=== PATIENT | female | born 1985 | race Caucasian/White ===

== ENCOUNTER → 2017-02-22 17:08 | Emergency (ER) | payer OTHER ==
[~2017-02-22 17:08] MED LIST: Phenazopyridine TAB* 100 MG PO ONE; Sulfamethox/Trimethoprim DS 800/160* TAB PO ONE
[2017-02-22 17:18] VITALS: BP 126/84
--- NOTE | 2017-02-22 18:15 | ED ---
GI/ HPI - HPI Summary HPI Summary: Pt here w/ urinary sx. Last week, noticed spotting w/ urination and dysuria - felt like pressure more than burning. This dissipated after a few days w/ water and cranberry juice. Then last night, she developed return of pain but different this time - LLQ and lower central pelvic region - has urinary frequency. Tried ibuprofen, heat pack, cranberry juice w/o difficulty. Denies flank pain, fever, chills, N/V/D and BM's are normal. She is sexually active and has had tubal ligation - denies vaginal irritation, d/c, pain. Periods are normal except for having 2 periods this past month which is not normal for her. Uses tampons but does not believe she could be at risk for retaining a tampon. No h/o UTI or kidney stone. NOTE: pt has asthma which is poorly controlled today. She ran out of albuterol inhaler - no refills and PCP requesting appoinment which they cannot schedule her for anytime soon. She is currently wheezing but speaking in full sentences w / a good pulse ox. - History of Current Complaint Chief Complaint: EDUrogenitalProblems Time Seen by Provider: 02/22/17 17:38 Stated Complaint: POSS UTI Hx Obtained From: Patient Pain Intensity: 0 - Allergy/Home Medications Allergies/Adverse Reactions: Allergies Allergy/AdvReac Type Severity Reaction Status Date / Time [place] Allergy Severe Hives/Diff. Verified 10/03/15 11:42 Breathing/I tching Iodinated Diagnostic Agents Allergy Severe Hives/Diff. Verified 10/03/15 11:42 Breathing/I tching Ofloxacin [From Floxin] Allergy Severe Hives/Diff. Verified 10/03/15 11:42 Breathing/I tching Adhesive Tape [Paper Tape] Allergy Intermediate Rash And Verified 10/03/15 11:42 Itching Quetiapine [From Seroquel] Allergy Intermediate Hives Verified 10/03/15 11:42 GRAPES Allergy Severe Hives/Diff. Uncoded 10/03/15 11:42 Breathing/I tching PMH/Surg Hx/FS Hx/Imm Hx Previously Healthy: Yes Endocrine/Hematology History: Denies: Hx Anticoagulant Therapy, Hx Blood Disorders Cardiovascular History: Denies: Hx Deep Vein Thrombosis Respiratory History: Reports: Hx Asthma Sensory History: Reports: Hx Contacts or Glasses Opthamlomology History: Reports: Hx Contacts or Glasses - Surgical History Surgery Procedure, Year, and Place: Tubal. Left ankle - subtalar fusion Infectious Disease History: No Infectious Disease History: Denies: Hx of Known/Suspected MRSA, Traveled Outside the [place] in Last 30 Days - Family History Known Family History: Positive: Cardiac Disease, Diabetes, Other - cancer - Social History Alcohol Use: Occasionally Substance Use Type: Reports: Marijuana Substance Use Comment - Amount & Last Used: occasional Smoking Status (MU): Never Smoked Tobacco Type: Smokeless Tobacco Amount Used/How Often: 1 can per day Length of Time of Smoking/Using Tobacco: 8 years Have You Smoked in the Last Year: No Review of Systems Constitutional: Negative Negative: Fever, Chills Negative: Sore Throat Negative: Chest Pain Respiratory: Other - see HPI Positive: Abdominal Pain - see HPI. Negative: Vomiting, Diarrhea, Nausea Positive: see HPI Musculoskeletal: Negative Negative: Rash Negative: Headache Psychological: Normal All Other Systems Reviewed And Are Negative: Yes Physical Exam Triage Information Reviewed: Yes Vital Signs On Initial Exam: Initial Vitals Temp Pulse Resp BP Pulse Ox 98.6 F 100 17 126/84 98 02/22/17 17:15 02/22/17 17:15 02/22/17 17:15 02/22/17 17:15 02/22/17 17:15 Vital Signs Reviewed: Yes Appearance: Positive: Well-Appearing, Pain Distress - mild sitting in chair, Obese Skin: Positive: Warm, Dry Head/Face: Positive: Normal Head/Face Inspection Eyes: Positive: Normal, Conjunctiva Clear ENT: Positive: Hearing grossly normal Respiratory/Lung Sounds: Positive: Wheezes. Negative: Unable to speak in full sentences, Fatigue Cardiovascular: Positive: Normal, RRR Abdomen Description: Positive: No Organomegaly, Soft, Other: - LLQ and central lower pelvis TTP - no rebouding. Negative: CVA Tenderness (R), CVA Tenderness ( L) Bowel Sounds: Positive: Present Musculoskeletal: Positive: Normal, Strength/ROM Intact Neurological: Positive: Normal, Sensory/Motor Intact, Alert, Oriented to Person Place, Time, CN Intact II-III Psychiatric: Positive: Normal Diagnostics - Vital Signs Vital Signs Temp Pulse Resp BP Pulse Ox 02/22/17 17:18 98.6 F 100 18 126/84 98 02/22/17 17:15 98.6 F 100 17 126/84 98 - Laboratory Lab Statement: Any lab studies that have been ordered have been reviewed, and results considered in the medical decision making process. GIGU Course/Dx - Course Course Of Treatment: Pt present w/ dysuria, pelvic pressure and urinary frequency on/off over the week, worse today. U/A reveals ketones, blood, wbc, nitrates, bacteria. Dx'd w/ UTI, anbx provided and f/u advised. If danger s/sx present, return to ED. Also provided w/ albuterol inhaler but advised to f/u w PCP for ongoing care of asthma. Return to ED if danger s/sx of breathing present. Pt agrees w/ plan. - Diagnoses Provider Diagnoses: UTI (urinary tract infection), Asthma Discharge - Discharge Plan Condition: Stable Disposition: HOME Prescriptions: Albuterol HFA INHALER* [Ventolin HFA Inhaler*] 2 puff INH Q6H PRN #1 mdi PRN Reason: Wheezing Phenazopyridine TAB* [Pyridium 100 mg TAB*] 200 tab PO TID #12 tab Sulfamethox/Trimethoprim DS* [Bactrim DS 800/160 TAB*] 1 tab PO BID #14 tab Patient Education Materials: Urinary Tract Infection in Women (ED) Referrals: [facility] [Outside] Additional Instructions: Drink plenty of fluids Complete antibiotic Take pyridium (pain medication) only as needed - this will not aid in the treatment of your infection, only controls pain Follow-up with PCP next week *If symptoms persist or worsen, you develop fever, chills, nausea, vomiting, flank pain, return to ED NOTE: an albuterol inhaler was sent in as you are having asthma exacerbation today. Please establish with PCP for future refills of routine care, but we are happy to see you here for uncontrolled symptoms such as shortness of breath, wheezing, trouble breathing. Avoid triggers (ie. smoke, perfumes, etc)
[2017-02-22 18:34] LABS: Manual Entry Verification MR; UR Preg Internal Control QC Line Present
[2017-02-22 18:41] LABS: Urine Bacteria Absent (Absent); Urine Bilirubin Negative (Negative); Urine Glucose Negative (Negative); Urine Nitrite Positive (Negative)
--- NOTE | 2017-02-24 09:49 | PN ---
Progress Note - Progress Note Date of Service: 02/24/17 Note: Patient urine grew E coli >100,000. patient placed on bactrim so will wait for final culture.
--- NOTE | 2017-02-25 08:42 | PN ---
Progress Note - Progress Note Date of Service: 02/25/17 Note: Final culture shows bactrim is sensitive so no further action needed.
== END | disposition home or self-care (01) ==
LOC: ED 17:08
DX: N39.0 Urinary tract infection, site not specified (principal); J45.909 Unspecified asthma, uncomplicated; R10.9 Unspecified abdominal pain; F17.220 Nicotine dependence, chewing tobacco, uncomplicated; R30.0 Dysuria
CPT/HCPCS: 81003; 81015; 81025; 87077; 87086; 87186; 99282; A9270-GY

== ENCOUNTER 2018-08-05 14:45 | Emergency (ER) | payer OTHER ==
[2018-08-05 14:52] VITALS: BP 127/83
--- NOTE | 2018-08-05 15:24 | ED ---
Throat Pain/Nasal Congestion - HPI Summary HPI Summary: Patient presents with left-sided ear pain over the past 2 days. This is been intermittent and sharp at times. Radiates down into her neck. Feels congested from sneezing and pain is worse when exposed to cold. Admits she's been outside hunting the past weekend and this may have triggered symptoms. Denies headache, fever, chills, chest pain, shortness of breath, jaw pain, fatigue. History of strep throat - does not feel like she has strep throat today. Has not tried anything for pain prior to arrival. - History of Current Complaint Chief Complaint: UCEar Time Seen by Provider: 08/05/18 15:24 Hx Obtained From: Patient - Allergies/Home Medications Allergies/Adverse Reactions: Allergies Allergy/AdvReac Type Severity Reaction Status Date / Time foley Allergy Severe hives Verified 08/05/18 14:53 difficulty breathing MS Ofloxacin [From Floxin] Allergy Severe Hives/Diff. Verified 10/03/15 11:42 Breathing/I tching ofloxacin Allergy Severe Difficulty Verified 08/05/18 14:53 Breathing quetiapine Allergy Severe Difficulty Verified 08/05/18 14:53 Breathing Adhesive Tape [Paper Tape] Allergy Intermediate Rash And Verified 10/03/15 11:42 Itching Iodinated Contrast- Oral and Allergy Intermediate hives Verified 08/05/18 14:53 IV Dye difficulty breathing GRAPES Allergy Severe Hives/Diff. Uncoded 10/03/15 11:42 Breathing/I tching PMH/Surg Hx/FS Hx/Imm Hx Previously Healthy: Yes Endocrine/Hematology History: Denies: Hx Anticoagulant Therapy, Hx Blood Disorders, Hx Diabetes, Hx Thyroid Disease Cardiovascular History: Denies: Hx Aneurysm, Hx Cardiac Arrest, Hx Deep Vein Thrombosis, Hx Hypercholesterolemia, Hx Hypertension, Hx Myocardial Infarction Respiratory History: Reports: Hx Asthma - well controlled Denies: Hx Chronic Obstructive Pulmonary Disease (COPD) GI History: Denies: Hx Gastroesophageal Reflux Disease, Hx Ulcer Sensory History: Reports: Hx Contacts or Glasses Opthamlomology History: Reports: Hx Contacts or Glasses - Surgical History Surgery Procedure, Year, and Place: Tubal. Left ankle - subtalar fusion Infectious Disease History: No Infectious Disease History: Denies: Hx Hepatitis, Hx Human Immunodeficiency Virus (HIV), Hx of Known/ Suspected MRSA, Traveled Outside the [place] in Last 30 Days - Family History Known Family History: Positive: Cardiac Disease, Diabetes, Other - cancer - Social History Occupation: Employed Full-time - works 9a-7p daily at 2 jobs Alcohol Use: Rare - every 6 months or so Substance Use Type: Reports: Marijuana Substance Use Comment - Amount & Last Used: occasional Hx Tobacco Use: Yes - not currently - no 2nd hand smoke exposure Smoking Status (MU): Former Smoker Type: Smokeless Tobacco Amount Used/How Often: 1 can per day Length of Time of Smoking/Using Tobacco: 8 years Have You Smoked in the Last Year: No Review of Systems Constitutional: Negative Eyes: Negative Positive: Ear Ache, Nasal Discharge. Negative: Dental Pain, Sore Throat Cardiovascular: Negative Respiratory: Negative Gastrointestinal: Negative Positive: no symptoms reported Musculoskeletal: Negative Skin: Negative Neurological: Negative Psychological: Normal All Other Systems Reviewed And Are Negative: Yes Physical Exam Triage Information Reviewed: Yes Vital Signs On Initial Exam: Initial Vitals Temp Pulse Resp BP Pulse Ox 98.9 F 85 18 127/83 100 08/05/18 14:48 08/05/18 14:48 08/05/18 14:48 08/05/18 14:48 08/05/18 14:48 Vital Signs Reviewed: Yes Appearance: Positive: Well-Appearing, No Pain Distress, Well-Nourished Skin: Positive: Warm, Skin Color Reflects Adequate Perfusion, Dry - no rash over affected area Head/Face: Positive: Normal Head/Face Inspection Eyes: Positive: Normal, EOMI, RASHIDA, Conjunctiva Clear. Negative: Conjunctiva Inflammed, Discharge ENT: Positive: Hearing grossly normal, Pharyngeal erythema - mild - injection, cobblestoning, Nasal congestion - mild - B/L, TMs normal - tragus TTP over Lt - no edema, Uvula midline. Negative: Tonsillar swelling, Tonsillar exudate, Trismus, Muffled voice, Sinus tenderness Dental: Negative: Dental Fracture @, Abscess @ Neck: Positive: Supple, Nontender, No Lymphadenopathy Respiratory/Lung Sounds: Positive: Clear to Auscultation, Breath Sounds Present , Other - had upper airway rhonchi but cleared w/ cough. Negative: Rales, Rhonchi, Wheezes Cardiovascular: Positive: Normal, RRR, S1, S2. Negative: Murmur, Rub, Leg Edema Left, Leg Edema Right Abdomen Description: Positive: Nontender, No Organomegaly, Soft Bowel Sounds: Positive: Present Musculoskeletal: Positive: Normal, Strength/ROM Intact Neurological: Positive: Normal, Sensory/Motor Intact, Alert, Oriented to Person Place, Time, CN Intact II-III Psychiatric: Positive: Normal Diagnostics - Vital Signs Vital Signs Temp Pulse Resp BP Pulse Ox 08/05/18 14:48 98.9 F 85 18 127/83 100 - Laboratory Lab Statement: Any lab studies that have been ordered have been reviewed, and results considered in the medical decision making process. EENT Course/Dx - Course Course Of Treatment: suspect eustachian tube dysfunction - offered supportive care and close f/u if sx do not improve. Reviewed danger s/sx of when to go to ED. Pt agrees w/ plan. - Diagnoses Provider Diagnoses: Eustachian tube dysfunction Discharge - Sign-Out/Discharge Documenting (check all that apply): Patient Departure All imaging exams completed and their final reports reviewed: No Studies - Discharge Plan Condition: Stable Disposition: HOME Patient Education Materials: Earache (ED) [facility]: [facility] [Outside] Additional Instructions: You appear to have eustachian tube dysfunction most likely due to nasal congestion. You may be able to open these drainage tubes by implementing: Ibuprofen and Sudafed for swelling and decongestion Nasal wash (netti pot or saline spray) Salt water throat gargles 2 x day Drink you body weight in ounces of water every day Sleep 8+ hours per night Avoid Dairy and sugar Hot herbal/decaf tea with lemon & honey Chicken broth (preferably organic, free range chicken) Humidifier in house, but especially near bed at night Keep home temperature at 68F or less to reduce dryness Use cough drops/throat lozenges Try a facial steam with or without eucalyptus essential oil or Ariel's Vapor rub for congestion Avoid smoke, candles, perfumes, colognes, scented soaps/detergents , air fresheners and cleaning chemicals as these can cause airway irritation Start Vitamin D3 5000iu and Vitamin C 1000mg every day x winter months *If symptoms persist or worsen, seek follow-up medical attention. [facility] is an interum PCP for follow-up if you do not have one of your own at this time. - Billing Disposition and Condition Condition: STABLE Disposition: Home
[2018-08-05] MEDS ORDERED: Ibuprofen TAB* 600 MG PO ONE (15:38)
== END 2018-08-05 15:56 | disposition home or self-care (01) ==
LOC: UCEAST 14:45
DX: H69.82 Other specified disorders of Eustachian tube, left ear (principal); Z88.8 Allergy status to other drugs, medicaments and biological substances; Z88.1 Allergy status to other antibiotic agents; Z91.041 Radiographic dye allergy status; Z87.891 Personal history of nicotine dependence
CPT/HCPCS: 99212; A9270-GY; G0463